=== PATIENT | male | born 1970 | race African-American/Black ===

== ENCOUNTER 2017-02-23 13:32 | Inpatient (IN) | payer MEDICAID ==
[~2017-02-23] VITALS: Ht 167.6 cm; Wt 67.6 kg
[~2017-02-23 13:32] MED LIST: ALBU8HFA IH
[2017-02-23 14:13] LABS: BASOPHILS % (AUTO) 0.2 % (0.0-2.0); EOSINOPHILS % (AUTO) 0.5 % (1.0-6.0); HEMATOCRIT 41.4 % (41-53); LYMPHOCYTES # (AUTO) 1.5 K/uL (1.0-4.8); LYMPHOCYTES % (AUTO) 9.2 % (22.0-44.0); MEAN CORPUSCULAR HEMOGLOBIN 28.1 pg (26.0-34.0); MEAN CORPUSCULAR HGB CONC 31.4 G/dL (31.0-37.0); MEAN CORPUSCULAR VOLUME 90 fL (80-100); MONOCYTES # (AUTO) 0.9 K/uL (0.1-1.0); NEUTROPHILS # (AUTO) 13.4 K/uL (1.8-7.7); NEUTROPHILS % (AUTO) 84.1 % (40.0-70.0); PLATELET COUNT (AUTO) 271 K/uL (150-450); RED BLOOD CELL COUNT(AUTO) 4.62 MIL/uL (4.50-5.90); RED CELL DISTRIBUTION WIDTH 14.8 % (11.5-14.5); WHITE BLOOD COUNT (AUTO) 15.9 K/uL (4.5-11.0)
[2017-02-23 14:20] LABS: ANION GAP 6 mmol/L (8-16); CALCIUM, TOTAL 9.1 mg/dL (8.8-10.5); CARBON DIOXIDE 30 mmol/L (22-29); CHLORIDE 103 mmol/L (98-107); CREATININE 1.22 mg/dL (0.60-1.30); GLOMERULAR FILTR. RATE CALC > 60 mL/min (>60); POTASSIUM 4.4 mmol/L (3.5-5.1); SODIUM SERUM 139 mmol/L (136-145); UREA NITROGEN, BLOOD 11 mg/dL (7-18)
[2017-02-23 14:27] LABS: ALANINE AMINOTRANSFERASE 24 U/L (12-78); ASPARTATE AMINOTRANSFERASE 23 U/L (15-37); BILIRUBIN,TOTAL 0.4 mg/dL (0.1-1.0); TOTAL PROTEIN, SERUM 7.4 g/dL (6.4-8.2)
[2017-02-23] MEDS ORDERED: LORazepam 2 MG TABLET PO ONE (17:00)
[2017-02-23] MEDS ORDERED: OLANZapine 5 MG TABLET PO ONE (17:00)
[2017-02-23] MEDS ORDERED: ZOLPIDEM TARTRATE 10 MG TABLET PO PRN (17:15)
[2017-02-23] MEDS ORDERED: HALOPERIDOL 5 MG TABLET PO PRN (17:15)
[2017-02-23 18:41] VITALS: BP 153/89
[2017-02-23] MEDS: CloNIDine HCL 0.1 MG TABLET PO SCH (18:45)
[2017-02-24 06:35] VITALS: BP 127/69
[2017-02-24 08:03] VITALS: BP 136/66
[2017-02-24] MEDS: CloNIDine HCL 0.1 MG TABLET PO SCH ×2 (08:36→17:14)
[2017-02-24 16:08] VITALS: BP 129/68
[2017-02-25 05:37] VITALS: BP 136/71
[2017-02-25 08:04] VITALS: BP 139/82
[2017-02-25] MEDS: CloNIDine HCL 0.1 MG TABLET PO SCH ×2 (09:03→16:22)
[2017-02-25] MEDS: FLUoxetine HCL 20 MG CAPSULE PO SCH (09:36)
[2017-02-25 16:00] VITALS: BP 132/86
[2017-02-25] MEDS: LORazepam 2 MG TABLET PO PRN (16:22)
[2017-02-26 06:02] VITALS: BP 136/68
[2017-02-26 08:29] VITALS: BP 132/72
[2017-02-26] MEDS: CloNIDine HCL 0.1 MG TABLET PO SCH ×2 (08:44→16:17)
[2017-02-26] MEDS: FLUoxetine HCL 20 MG CAPSULE PO SCH (08:44)
[2017-02-26] MEDS: LORazepam 2 MG TABLET PO PRN ×2 (08:44→16:00)
[2017-02-26] MEDS: SERTRALINE HCL 50 MG TABLET PO SCH (11:40)
[2017-02-26 16:00] VITALS: BP 138/87
[2017-02-27 07:02] VITALS: BP 130/72
[2017-02-27] MEDS: CloNIDine HCL 0.1 MG TABLET PO SCH ×2 (08:10→16:50)
[2017-02-27] MEDS: SERTRALINE HCL 50 MG TABLET PO SCH (08:10)
[2017-02-27 08:58] LABS: APPEARANCE,URINE CLEAR (CLEAR); GLUCOSE, URINE (UA) NEGATIVE (NEGATIVE); KETONES,URINE NEGATIVE (NEGATIVE); LEUKOCYTE ESTERASE ,URINE NEGATIVE (NEGATIVE); OCCULT BLOOD,URINE NEGATIVE (NEGATIVE); PROTEIN,URINE NEGATIVE (NEGATIVE)
[2017-02-27 09:01] VITALS: BP 148/83
[2017-02-27 09:09] LABS: ADD UA MICROSCOPIC NO
[2017-02-27 16:05] VITALS: BP 142/82
[2017-02-28 07:32] VITALS: BP 116/75
[2017-02-28 08:05] VITALS: BP 133/77
[2017-02-28] MEDS: CloNIDine HCL 0.1 MG TABLET PO SCH ×2 (09:35→16:19)
[2017-02-28] MEDS: SERTRALINE HCL 50 MG TABLET PO SCH (09:35)
[2017-02-28 16:00] VITALS: BP 138/75
[2017-03-01 08:32] VITALS: BP 134/73
[2017-03-01] MEDS: CloNIDine HCL 0.1 MG TABLET PO SCH (08:42)
[2017-03-01] MEDS: SERTRALINE HCL 50 MG TABLET PO SCH (08:42)
[2017-03-01] MEDS ORDERED: SERT50TA12 PO (10:59)
[2017-03-01] MEDS ORDERED: CLON.1 PO (10:59)
== END 2017-03-01 14:18 | disposition home or self-care (01) | DRG 750 ==
LOC: EMS 13:34 → B3A 17:01
PROVIDERS: ADMIT Psychiatry & Neurology Child & Adolescent Psychiatry; ATTEND Psychiatry & Neurology Child & Adolescent Psychiatry
DX: F25.1 Schizoaffective disorder, depressive type (principal); R45.851 Suicidal ideations; R03.0 Elevated blood-pressure reading, without diagnosis of hypertension; F15.10 Other stimulant abuse, uncomplicated
CPT/HCPCS: 99285; G0480

== ENCOUNTER 2017-08-19 20:55 | Emergency (ER) | payer MEDICAID ==
[~2017-08-19] VITALS: Ht 172.7 cm; Wt 77.3 kg
[~2017-08-19 20:55] MED LIST changes: -ALBU8HFA IH; +CLON-570 PO; +SERT50TA12 PO
[2017-08-19 21:18] LABS: HEMATOCRIT 37.7 % (41-53); HEMOGLOBIN 12.3 g/dL (13.5-17.5); MEAN CORPUSCULAR HEMOGLOBIN 28.9 pg (26.0-34.0); MEAN CORPUSCULAR HGB CONC 32.6 G/dL (31.0-37.0); MEAN CORPUSCULAR VOLUME 89 fL (80-100); PLATELET COUNT (AUTO) 238 K/uL (150-450); RED BLOOD CELL COUNT(AUTO) 4.25 MIL/uL (4.50-5.90); RED CELL DISTRIBUTION WIDTH 14.5 % (11.5-14.5); WHITE BLOOD COUNT (AUTO) 25.6 K/uL (4.5-11.0)
[2017-08-19] MEDS ORDERED: MORPHINE SULFATE 4 MG/ML SYRINGE IVP ONE (21:30)
[2017-08-19] MEDS ORDERED: SODIUM CHLORIDE 0.9% 1,000 ML IV ONE (21:30)
[2017-08-19] MEDS ORDERED: ONDANSETRON HCL 4 MG/2 ML VIAL IVP ONE (21:30)
[2017-08-19 21:36] LABS: ANION GAP 10 mmol/L (8-16); CALCIUM, TOTAL 9.1 mg/dL (8.8-10.5); CARBON DIOXIDE 29 mmol/L (22-29); CHLORIDE 103 mmol/L (98-107); CREATININE 1.08 mg/dL (0.60-1.30); GLOMERULAR FILTR. RATE CALC > 60 mL/min (>60); POTASSIUM 3.8 mmol/L (3.5-5.1); SODIUM SERUM 142 mmol/L (136-145); UREA NITROGEN, BLOOD 16 mg/dL (7-18)
[2017-08-19 21:42] LABS: ALANINE AMINOTRANSFERASE 31 U/L (12-78); ALBUMIN 3.7 g/dL (3.4-5.0); ASPARTATE AMINOTRANSFERASE 40 U/L (15-37); BILIRUBIN,TOTAL 0.6 mg/dL (0.1-1.0); TOTAL PROTEIN, SERUM 7.8 g/dL (6.4-8.2)
[2017-08-19 21:51] LABS: BAND NEUTROPHILS % (MANUAL) 9 % (1-5); INR 1.1 (0.9-1.1); LYMPHOCYTES % (MANUAL) 5 % (22-44); TOTAL CELLS COUNTED 100
[2017-08-19 21:53] LABS: RBC MORPHOLOGY COMMENT NORMAL RBC MORPH
[2017-08-19] MEDS ORDERED: BARIUM SULFATE 0.1% SUSPENSION 450 ML BOTTLE PO ONE (22:00)
[2017-08-19 22:19] LABS: APPEARANCE,URINE CLEAR (CLEAR); GLUCOSE, URINE (UA) NEGATIVE (NEGATIVE); KETONES,URINE 40 mg/dL (NEGATIVE); LEUKOCYTE ESTERASE ,URINE NEGATIVE (NEGATIVE); OCCULT BLOOD,URINE NEGATIVE (NEGATIVE); PH,URINE 6.5 (5.0-8.0); PROTEIN,URINE TRACE (NEGATIVE)
[2017-08-19 22:23] LABS: ADD UA MICROSCOPIC NO
[2017-08-19] MEDS ORDERED: IOVERSOL 350 MG/ML 100 ML VIAL ONE (23:09)
[2017-08-20 01:00] VITALS: BP 132/83
== END 2017-08-20 01:17 | disposition home or self-care (01) ==
LOC: EMS 20:57
DX: R10.12 Left upper quadrant pain (principal); R10.13 Epigastric pain; J18.9 Pneumonia, unspecified organism; I10 Essential (primary) hypertension; J45.909 Unspecified asthma, uncomplicated
CPT/HCPCS: 36415; 74177; 80053; 80307; 81003; 83690; 84484; 85025; 85610; 96361; 96374; 96375; 99285; J2270; J2405; J7030; Q9967; Z7610